=== PATIENT | male | born 2000 | race Caucasian/White ===

== ENCOUNTER 2022-12-26 06:00 | Inpatient (IN) | payer BC, OTHER ==
[2022-12-26] MEDS ORDERED: Fentanyl 100 MCG/2 ML VIAL ONE (06:19)
[2022-12-26] MEDS ORDERED: Midazolam HCl 2 mg/2 ml Vial ONE ×2 (06:19→06:23)
[2022-12-26 06:28] LABS: Hemoglobin 17.1 g/dL (14.0-18.0); Mean Corpuscular HGB CONC 34.5 g/dL (32.0-36.0); Mean Corpuscular Hemoglobin 31.4 pg (27.0-31.0); Mean Platelet Volume 8.1 fL (7.4-10.4); Platelet Count 248 10x3/uL (130-400); RBC Distribution Width 11.8 % (11.5-14.5); Red Blood Cell (RBC) Count 5.44 mill/uL (4.70-6.10); White Blood Cell (WBC) Count 22.2 10x3/uL (4.8-10.8)
[2022-12-26] MEDS ORDERED: Fentanyl CADD 100 ML IV SCH (06:30)
[2022-12-26 06:41] LABS: INR-International Normal Ratio 1.1; Prothrombin Time 14.7 sec (12.0-14.7)
[2022-12-26 06:47] LABS: Acetaminophen Less than 10.0 mcg/mL (10.0-30.0); Albumin 5.3 g/dL (3.5-5.0); Alcohol 191 mg/dL (Less than 10); CK (CPK) 2185 U/L (30-200); Salicylate Less than 8.0 mg/dL (15.0-30.0)
[2022-12-26 06:48] LABS: Chloride 103 mmol/L (98-107); Potassium 3.4 mmol/L (3.5-5.1); Sodium 140 mmol/L (136-145)
[2022-12-26 06:49] LABS: Calcium 9.4 mg/dL (7.8-10.44); Globulin 3.1 g/dL (2.4-3.5); Glucose 134 mg/dL (70-105); Protein, Total 8.4 g/dL (6.0-8.3)
[2022-12-26 06:51] LABS: Anion Gap 19 mmol/L (10-20); Bilirubin, Total 1.3 mg/dL (0.2-1.2); Carbon Dioxide 21 mmol/L (22-29)
[2022-12-26 06:52] LABS: Alkaline Phosphatase 94 U/L (40-110)
[2022-12-26 06:53] LABS: BUN (Urea Nitrogen) 11 mg/dL (8.9-20.6); Calc. Creatinine Clearance 0 mL/min (70-130); Estimated GFR 53
[2022-12-26 06:54] LABS: AST (SGOT) 337 U/L (5-34)
[2022-12-26 06:55] LABS: ALT (SGPT) 268 U/L (8-55); Lipase 378 U/L (8-78)
[2022-12-26] MEDS ORDERED: Dextrose 50% Abboject 50 ML SYRINGE SLOW IVP PRN (07:04)
[2022-12-26] MEDS ORDERED: hydrALAZINE 20 MG/ML VIAL SLOW IVP PRN (07:04)
[2022-12-26] MEDS ORDERED: Dextrose 5% in Water 1,000 ML IV PRN (07:04)
[2022-12-26] MEDS ORDERED: Insulin Regular 300 UNITS/3 ML VIAL SC PRN (07:04)
[2022-12-26] MEDS ORDERED: Ipratropium/Albuterol 3 ML NEB NEB PRN (07:04)
[2022-12-26] MEDS ORDERED: Ondansetron PF 4 MG/2 ML Vial IVP PRN (07:04)
[2022-12-26] MEDS ORDERED: TETANUS, DIPHTHERIA TOX,ADULT (TDVAX) 0.5 ML VIAL IM ONE (07:04)
[2022-12-26] MEDS ORDERED: Sodium Chloride 0.9% 1,000 ML IV SCH (07:15)
[2022-12-26] MEDS ORDERED: Ventilator Sedation Protocol 1 EACH FS SCH (07:15)
[2022-12-26 07:17] LABS: Bilirubin Negative (Negative); Blood, Urine 3+ (Negative); Clarity Clear (Clear); Glucose, Urine (Dipstick) Normal (Negative); Ketone, Urine Negative (Negative); Leukocyte 75 Leu/uL (Negative); Nitrite Negative (Negative); Protein, Urine (Dipstick) 100 mg/dL (Neg-Trace); RBC/HPF Greater than 50 HPF (0-3); Specific Gravity, Urine 1.006 (1.002-1.036); Squamous Epithelial 0-3 HPF (0-3); Urobilinogen Normal mg/dL (Less than 2); pH, Urine 6.5 (5.0-9.0)
[2022-12-26 07:19] LABS: Bacteria/HPF Rare-Few HPF (None Seen)
[2022-12-26 07:26] LABS: Amphetamine Not Detected (NotDetected); Barbiturates Screen Not Detected (NotDetected); Benzodiazepine Screen Not Detected (NotDetected); Cocaine Metabolite Screen Not Detected (NotDetected); Methadone Not Detected (NotDetected); Methamphetamine Not Detected (NotDetected); Opiate Screen Not Detected (NotDetected); Oxycodone Screen Not Detected (NotDetected); Phencyclidine (PCP) Not Detected (NotDetected); THC/Cannabinoid Screen Not Detected (NotDetected); Tricyclic Screen Not Detected (NotDetected)
[2022-12-26 07:27] LABS: Actual Bicarbonate (HCO3a) 17.8 mEq/L (22-28); Analyzer IN Cardio ER; Base Excess (BEa) -6.9 mEq/L (-2.0 to +3.0); CO2 Tension 33.7 mmHg (35.0-45.0); Calcium, Ionized (arterial) 1.08 mmol/L (1.12-1.30); Carboxyhemoglobin (COHb) 0.3 gm% (0.0-3.0); Hemoglobin (Hb) 14.8 g/dL (14.0-18.0); O2 Tension (PaO2), arterial 182.7 mmHg (80.0-100.0); pH, Arterial 7.34 (7.35-7.45)
[2022-12-26] MEDS ORDERED: Fentanyl BOLUS 250 ML IVPB PRN (07:30)
[2022-12-26] MEDS ORDERED: Propofol BOLUS 1,000 MG/100 ML VIAL IV PRN (07:30)
[2022-12-26] MEDS ORDERED: Propofol 1,000 MG/100 ML VIAL IV PRN (07:30)
[2022-12-26] MEDS ORDERED: DISCONTINUE PREVIOUS NARCOTIC PAIN MEDICATIONS AND BENZODIAZEPINES FS SCH (07:30)
[2022-12-26 07:33] LABS: Puncture Site RRA
[2022-12-26 07:34] LABS: ALV-art Gradient 60.375 mmHg (0-20)
[2022-12-26 07:36] LABS: Band 20 % (5-11); Lymphocytes 10 % (21-51); MDiff Complete? YES; Metamyelocyte 1 % (0-0); Monocytes 5 % (0-10); Neutrophil 63 % (42-75); Platelet Morphology Comment Appears Adequate; Polychromasia SLIGHT = 2-3 cells (100X) (0-2/hpf); Reactive Lymphocytes 1 % (0-10)
[2022-12-26 07:38] LABS: Phosphorus 5.7 mg/dL (2.3-4.7)
[2022-12-26 07:40] LABS: Magnesium 2.2 mg/dL (1.6-2.6)
[2022-12-26] MEDS ORDERED: Calcium Chloride 13.6 MEQ in Sodium Chloride 0.9% 100 ML IVPB SCH (08:15)
[2022-12-26 09:07] LABS: Lactic Acid 3.9 mmol/L (0.5-2.2)
[2022-12-26] MEDS: Acetaminophen 500 MG TAB PO SCH ×3 (10:23→20:44)
[2022-12-26] MEDS: Famotidine/PF 20 mg/2ml Vial SLOW IVP SCH ×2 (10:23→21:24)
[2022-12-26] MEDS: Polyethylene Glycol 3350 17 GM Packet PO SCH (10:24)
[2022-12-26] MEDS: Senokot S 8.6-50 MG TAB PO SCH ×2 (10:24→21:24)
[2022-12-26] MEDS: Sodium Chloride 0.9% 1,000 ML IV SCH ×2 (10:24→18:47)
[2022-12-26 11:57] LABS: Hemoglobin 13.9 g/dL (14.0-18.0); Mean Corpuscular HGB CONC 35.8 g/dL (32.0-36.0); Mean Corpuscular Hemoglobin 32.7 pg (27.0-31.0); Mean Corpuscular Volume 91.6 fl (78.0-98.0); Mean Platelet Volume 7.5 fL (7.4-10.4); Platelet Count 195 10x3/uL (130-400); RBC Distribution Width 11.6 % (11.5-14.5); Red Blood Cell (RBC) Count 4.23 mill/uL (4.70-6.10); White Blood Cell (WBC) Count 16.3 10x3/uL (4.8-10.8)
[2022-12-26] MEDS: Ipratropium/Albuterol 3 ML NEB NEB SCH ×2 (12:17→18:18)
[2022-12-26 12:32] LABS: SARS-CoV-2 NAA Rapid Test Not Detected (NotDetected)
[2022-12-26 12:33] LABS: Band 12 % (5-11); Lymphocytes 5 % (21-51); MDiff Complete? YES; Monocytes 4 % (0-10); Neutrophil 79 % (42-75); Platelet Morphology Comment Appears Adequate; RBC Morphology Normal
[2022-12-26] MEDS ORDERED: Iopamidol 370 76% 100 ML VIAL ONE (15:35)
[2022-12-26] MEDS ORDERED: Lidocaine 1% w/Epinephrine 1:100K 20 ML VIAL IJ SCH ×2 (15:45)
[2022-12-26 18:15] LABS: #Monocytes 1.1 thou/uL (0.11-0.59); #Neutrophils 9.3 thou/uL (1.40-6.50); %Basophils 0.1 % (0.0-1.0); %Eosinophils 0.1 % (0.0-10.0); %Lymphocytes 8.9 % (21.0-51.0); %Monocytes 9.8 % (0.0-10.0); %Neutrophils 81.2 % (42.0-75.0); Hemoglobin 13.2 g/dL (14.0-18.0); Mean Corpuscular HGB CONC 33.2 g/dL (32.0-36.0); Mean Corpuscular Hemoglobin 30.1 pg (27.0-31.0); Mean Corpuscular Volume 90.8 fl (78.0-98.0); Platelet Count 173 10x3/uL (130-400); RBC Distribution Width 11.8 % (11.5-14.5); White Blood Cell (WBC) Count 11.5 10x3/uL (4.8-10.8)
[2022-12-26 18:35] LABS: Lactic Acid 2.2 mmol/L (0.5-2.2)
[2022-12-26 18:49] LABS: Anion Gap 13 mmol/L (10-20); BUN (Urea Nitrogen) 14 mg/dL (8.9-20.6); Calc. Creatinine Clearance 112 mL/min (70-130); Calcium 8.5 mg/dL (7.8-10.44); Carbon Dioxide 21 mmol/L (22-29); Chloride 110 mmol/L (98-107); Estimated GFR 88; Glucose 103 mg/dL (70-105); Magnesium 1.5 mg/dL (1.6-2.6); Phosphorus 4.5 mg/dL (2.3-4.7); Potassium 4.3 mmol/L (3.5-5.1); Sodium 140 mmol/L (136-145)
[2022-12-27] MEDS: Fentanyl CADD 100 ML IV SCH ×2 (00:08→20:41)
[2022-12-27 01:12] LABS: #Lymphocytes 1.2 thou/uL (1.20-3.40); #Monocytes 0.9 thou/uL (0.11-0.59); #Neutrophils 7.3 thou/uL (1.40-6.50); %Basophils 0.1 % (0.0-1.0); %Eosinophils 0.3 % (0.0-10.0); %Lymphocytes 12.4 % (21.0-51.0); %Monocytes 9.2 % (0.0-10.0); Hemoglobin 12.7 g/dL (14.0-18.0); Mean Corpuscular Volume 90.9 fl (78.0-98.0); Mean Platelet Volume 7.4 fL (7.4-10.4); Platelet Count 141 10x3/uL (130-400); RBC Distribution Width 11.8 % (11.5-14.5); Red Blood Cell (RBC) Count 4.22 mill/uL (4.70-6.10); White Blood Cell (WBC) Count 9.3 10x3/uL (4.8-10.8)
[2022-12-27] MEDS ORDERED: Magnesium Sulfate In Water 4 GM in Premix Bag 1 BAG IVPB SCH (01:30)
[2022-12-27] MEDS: Sodium Chloride 0.9% 1,000 ML IV SCH ×3 (01:45→17:45)
[2022-12-27] MEDS: Acetaminophen 325 MG TAB PO SCH ×4 (05:19→17:45)
[2022-12-27 05:25] LABS: #Monocytes 0.8 thou/uL (0.11-0.59); #Neutrophils 8.2 thou/uL (1.40-6.50); %Basophils 0.1 % (0.0-1.0); %Eosinophils 0.5 % (0.0-10.0); %Lymphocytes 9.9 % (21.0-51.0); %Neutrophils 81.4 % (42.0-75.0); Hemoglobin 12.6 g/dL (14.0-18.0); Mean Corpuscular HGB CONC 33.5 g/dL (32.0-36.0); Mean Corpuscular Hemoglobin 30.7 pg (27.0-31.0); Mean Corpuscular Volume 91.6 fl (78.0-98.0); Mean Platelet Volume 7.5 fL (7.4-10.4); Platelet Count 133 10x3/uL (130-400); RBC Distribution Width 11.8 % (11.5-14.5)
[2022-12-27 05:59] LABS: ALT (SGPT) 129 U/L (8-55); AST (SGOT) 109 U/L (5-34); Albumin 3.4 g/dL (3.5-5.0); Alkaline Phosphatase 56 U/L (40-110); Anion Gap 11 mmol/L (10-20); BUN (Urea Nitrogen) 13 mg/dL (8.9-20.6); Bilirubin, Total 1.1 mg/dL (0.2-1.2); CK (CPK) 1850 U/L (30-200); Calc. Creatinine Clearance 135 mL/min (70-130); Calcium 8.5 mg/dL (7.8-10.44); Carbon Dioxide 21 mmol/L (22-29); Chloride 110 mmol/L (98-107); Estimated GFR 105; Globulin 2.1 g/dL (2.4-3.5); Glucose 94 mg/dL (70-105); Magnesium 2.7 mg/dL (1.6-2.6); Phosphorus 3.2 mg/dL (2.3-4.7); Potassium 4.1 mmol/L (3.5-5.1); Protein, Total 5.5 g/dL (6.0-8.3); Sodium 138 mmol/L (136-145)
[2022-12-27] MEDS: Ipratropium/Albuterol 3 ML NEB NEB SCH ×3 (07:20→18:11)
[2022-12-27 07:25] LABS: Base Excess (BEa) -0.1 mEq/L (-2.0 to +3.0); CO2 Tension 37.3 mmHg (35.0-45.0); Calcium, Ionized (arterial) 1.18 mmol/L (1.12-1.30); Carboxyhemoglobin (COHb) 0.3 gm% (0.0-3.0); Hemoglobin (Hb) 12.7 g/dL (14.0-18.0); O2 Tension (PaO2), arterial 146.6 mmHg (80.0-100.0); Potassium - ABG Lab 4.04 mmol/L (3.70-5.30); pH, Arterial 7.43 (7.35-7.45)
[2022-12-27 07:26] LABS: ALV-art Gradient 91.975 mmHg (0-20); Puncture Site LRA
[2022-12-27] MEDS: Famotidine/PF 20 mg/2ml Vial SLOW IVP SCH ×2 (08:36→21:11)
[2022-12-27] MEDS: Senokot S 8.6-50 MG TAB PO SCH ×2 (08:36→21:11)
[2022-12-27] MEDS: Polyethylene Glycol 3350 17 GM Packet PO SCH (08:36)
[2022-12-27] MEDS ORDERED: Iopamidol-370 76% 500 ML 1 ML ONE (12:33)
[2022-12-27] MEDS ORDERED: Dexmedetomidine In 0.9 % NaCl 100 ML IVPB SCH (13:15)
[2022-12-27 18:17] LABS: Hemoglobin 11.8 g/dL (14.0-18.0); Mean Corpuscular HGB CONC 33.7 g/dL (32.0-36.0); Mean Corpuscular Hemoglobin 30.9 pg (27.0-31.0); Mean Corpuscular Volume 91.8 fl (78.0-98.0); Mean Platelet Volume 8.1 fL (7.4-10.4); Platelet Count 123 10x3/uL (130-400); RBC Distribution Width 11.7 % (11.5-14.5); Red Blood Cell (RBC) Count 3.81 mill/uL (4.70-6.10); White Blood Cell (WBC) Count 10.4 10x3/uL (4.8-10.8)
[2022-12-27 18:34] LABS: Band 19 % (5-11); Lymphocytes 5 % (21-51); MDiff Complete? YES; Monocytes 6 % (0-10); Neutrophil 69 % (42-75); Platelet Morphology Comment Appears Adequate; RBC Morphology Normal; Reactive Lymphocytes 1 % (0-10)
[2022-12-27 18:39] LABS: Anion Gap 12 mmol/L (10-20); BUN (Urea Nitrogen) 10 mg/dL (8.9-20.6); Calc. Creatinine Clearance 141 mL/min (70-130); Calcium 8.5 mg/dL (7.8-10.44); Carbon Dioxide 21 mmol/L (22-29); Chloride 109 mmol/L (98-107); Estimated GFR 110; Glucose 95 mg/dL (70-105); Magnesium 2.1 mg/dL (1.6-2.6); Phosphorus 2.5 mg/dL (2.3-4.7); Potassium 4.4 mmol/L (3.5-5.1); Sodium 138 mmol/L (136-145)
[2022-12-27] MEDS ORDERED: Sodium Phosphate 30 MMOL in Sodium Chloride 0.9% 250 ML 250 ML IVPB SCH (19:15)
[2022-12-28] MEDS: Acetaminophen 325 MG TAB PO SCH ×4 (00:14→17:48)
[2022-12-28] MEDS: Sodium Chloride 0.9% 1,000 ML IV SCH ×3 (00:46→16:15)
[2022-12-28 04:36] LABS: Anion Gap 12 mmol/L (10-20); BUN (Urea Nitrogen) 8 mg/dL (8.9-20.6); CK (CPK) 1054 U/L (30-200); Calc. Creatinine Clearance 164 mL/min (70-130); Calcium 8.2 mg/dL (7.8-10.44); Carbon Dioxide 20 mmol/L (22-29); Chloride 111 mmol/L (98-107); Estimated GFR 126; Glucose 89 mg/dL (70-105); Lipase 27 U/L (8-78); Magnesium 1.9 mg/dL (1.6-2.6); Potassium 4.2 mmol/L (3.5-5.1); Sodium 139 mmol/L (136-145)
[2022-12-28 04:37] LABS: #Eosinphils 0.1 thou/uL (0.0-0.7); #Lymphocytes 0.6 thou/uL (1.20-3.40); #Monocytes 0.5 thou/uL (0.11-0.59); #Neutrophils 6.5 thou/uL (1.40-6.50); %Basophils 0.1 % (0.0-1.0); %Eosinophils 0.8 % (0.0-10.0); %Lymphocytes 7.5 % (21.0-51.0); %Monocytes 6.6 % (0.0-10.0); %Neutrophils 84.9 % (42.0-75.0); Hemoglobin 10.6 g/dL (14.0-18.0); Mean Corpuscular HGB CONC 32.4 g/dL (32.0-36.0); Mean Corpuscular Volume 92.8 fl (78.0-98.0); Mean Platelet Volume 7.9 fL (7.4-10.4); Platelet Count 109 10x3/uL (130-400); RBC Distribution Width 11.7 % (11.5-14.5); Red Blood Cell (RBC) Count 3.52 mill/uL (4.70-6.10); White Blood Cell (WBC) Count 7.7 10x3/uL (4.8-10.8)
[2022-12-28 04:39] LABS: Phosphorus 3.2 mg/dL (2.3-4.7)
[2022-12-28 06:43] LABS: Actual Bicarbonate (HCO3a) 21.5 mEq/L (22-28); Base Excess (BEa) -2.3 mEq/L (-2.0 to +3.0); CO2 Tension 33.7 mmHg (35.0-45.0); Calcium, Ionized (arterial) 1.17 mmol/L (1.12-1.30); Carboxyhemoglobin (COHb) 0.3 gm% (0.0-3.0); Hemoglobin (Hb) 11.1 g/dL (14.0-18.0); O2 Tension (PaO2), arterial 67.6 mmHg (80.0-100.0); Potassium - ABG Lab 3.98 mmol/L (3.70-5.30); pH, Arterial 7.42 (7.35-7.45)
[2022-12-28 06:44] LABS: ALV-art Gradient 175.475 mmHg (0-20)
[2022-12-28] MEDS: Ipratropium/Albuterol 3 ML NEB NEB SCH ×3 (07:26→18:54)
[2022-12-28] MEDS ORDERED: Sodium Phosphate 15 MMOL in Sodium Chloride 0.9% 250 ML 250 ML IVPB SCH (07:30)
[2022-12-28] MEDS: Famotidine/PF 20 mg/2ml Vial SLOW IVP SCH ×2 (08:44→20:57)
[2022-12-28] MEDS: Polyethylene Glycol 3350 17 GM Packet PO SCH (08:44)
[2022-12-28] MEDS: Senokot S 8.6-50 MG TAB PO SCH ×2 (08:44→21:00)
[2022-12-28] MEDS ORDERED: Piperacillin/Tazobactam 3.375 GM in Sodium Chloride 0.9% 100 ML IVPB SCH (11:00)
[2022-12-28] MEDS ORDERED: Magnesium 2 GM/50 ML(in water) 2 GM in Premix Bag 1 BAG IVPB SCH (11:00)
[2022-12-28] MEDS: Fentanyl 100 MCG/2 ML VIAL SLOW IVP PRN (13:33)
[2022-12-28] MEDS: Piperacillin/Tazobactam 3.375 GM in Sodium Chloride 0.9% 100 ML IVPB SCH ×2 (16:15→23:43)
[2022-12-29] MEDS: Acetaminophen 325 MG TAB PO SCH ×6 (00:26→23:07)
[2022-12-29] MEDS: Sodium Chloride 0.9% 1,000 ML IV SCH ×3 (02:22→17:21)
[2022-12-29 04:37] LABS: #Eosinphils 0.1 thou/uL (0.0-0.7); #Lymphocytes 0.7 thou/uL (1.20-3.40); #Monocytes 0.7 thou/uL (0.11-0.59); #Neutrophils 7.6 thou/uL (1.40-6.50); %Basophils 0.2 % (0.0-1.0); %Eosinophils 1.4 % (0.0-10.0); %Lymphocytes 7.8 % (21.0-51.0); %Monocytes 7.4 % (0.0-10.0); %Neutrophils 83.3 % (42.0-75.0); Hemoglobin 9.9 g/dL (14.0-18.0); Mean Corpuscular HGB CONC 32.2 g/dL (32.0-36.0); Mean Corpuscular Hemoglobin 29.6 pg (27.0-31.0); Platelet Count 117 10x3/uL (130-400); RBC Distribution Width 11.5 % (11.5-14.5); Red Blood Cell (RBC) Count 3.33 mill/uL (4.70-6.10); White Blood Cell (WBC) Count 9.1 10x3/uL (4.8-10.8)
[2022-12-29 04:42] LABS: ALT (SGPT) 63 U/L (8-55); AST (SGOT) 43 U/L (5-34); Alkaline Phosphatase 60 U/L (40-110); Anion Gap 11 mmol/L (10-20); BUN (Urea Nitrogen) 11 mg/dL (8.9-20.6); Bilirubin, Total 1.1 mg/dL (0.2-1.2); Calc. Creatinine Clearance 104 mL/min (70-130); Calcium 8.5 mg/dL (7.8-10.44); Carbon Dioxide 21 mmol/L (22-29); Chloride 111 mmol/L (98-107); Estimated GFR 75; Globulin 2.5 g/dL (2.4-3.5); Glucose 100 mg/dL (70-105); Magnesium 2.1 mg/dL (1.6-2.6); Phosphorus 2.2 mg/dL (2.3-4.7); Potassium 3.8 mmol/L (3.5-5.1); Protein, Total 5.5 g/dL (6.0-8.3); Sodium 139 mmol/L (136-145)
[2022-12-29] MEDS: Ipratropium/Albuterol 3 ML NEB NEB SCH ×3 (07:34→18:35)
[2022-12-29] MEDS: Piperacillin/Tazobactam 3.375 GM in Sodium Chloride 0.9% 100 ML IVPB SCH ×3 (09:19→23:09)
[2022-12-29] MEDS: Famotidine/PF 20 mg/2ml Vial SLOW IVP SCH (09:20)
[2022-12-29] MEDS ORDERED: Potassium Phosphate 30 MMOL in Sodium Chloride 0.9% 250 ML 250 ML IVPB SCH (09:30)
[2022-12-29] MEDS: Polyethylene Glycol 3350 17 GM Packet PO SCH (09:35)
[2022-12-29] MEDS: Senokot S 8.6-50 MG TAB PO SCH ×2 (09:36→20:24)
[2022-12-29] MEDS: carBAMazepine 100 MG/5 ML UDCUP PO SCH ×4 (10:14→20:24)
[2022-12-29] MEDS: Fentanyl 100 MCG/2 ML VIAL SLOW IVP PRN ×3 (12:14→23:45)
[2022-12-29] MEDS: Famotidine 20 MG TAB PO SCH (20:24)
[2022-12-30] MEDS: Sodium Chloride 0.9% 1,000 ML IV SCH ×3 (01:22→16:38)
[2022-12-30 04:18] LABS: #Eosinphils 0.1 thou/uL (0.0-0.7); #Lymphocytes 0.8 thou/uL (1.20-3.40); #Monocytes 0.8 thou/uL (0.11-0.59); #Neutrophils 8.5 thou/uL (1.40-6.50); %Basophils 0.1 % (0.0-1.0); %Eosinophils 1.4 % (0.0-10.0); %Lymphocytes 8.1 % (21.0-51.0); %Monocytes 7.7 % (0.0-10.0); %Neutrophils 82.7 % (42.0-75.0); Hemoglobin 10.2 g/dL (14.0-18.0); Mean Corpuscular HGB CONC 32.4 g/dL (32.0-36.0); Mean Corpuscular Hemoglobin 29.6 pg (27.0-31.0); Mean Corpuscular Volume 91.2 fl (78.0-98.0); Mean Platelet Volume 7.8 fL (7.4-10.4); Platelet Count 164 10x3/uL (130-400); RBC Distribution Width 11.5 % (11.5-14.5); Red Blood Cell (RBC) Count 3.45 mill/uL (4.70-6.10); White Blood Cell (WBC) Count 10.2 10x3/uL (4.8-10.8)
[2022-12-30 04:47] LABS: Anion Gap 15 mmol/L (10-20); BUN (Urea Nitrogen) 9 mg/dL (8.9-20.6); Calc. Creatinine Clearance 164 mL/min (70-130); Calcium 8.6 mg/dL (7.8-10.44); Carbon Dioxide 20 mmol/L (22-29); Chloride 108 mmol/L (98-107); Estimated GFR 127; Glucose 96 mg/dL (70-105); Magnesium 1.8 mg/dL (1.6-2.6); Phosphorus 2.9 mg/dL (2.3-4.7); Potassium 3.8 mmol/L (3.5-5.1); Sodium 139 mmol/L (136-145)
[2022-12-30] MEDS: Acetaminophen 325 MG TAB PO SCH ×4 (05:30→23:32)
[2022-12-30] MEDS: Ipratropium/Albuterol 3 ML NEB NEB SCH ×3 (07:07→18:13)
[2022-12-30] MEDS: Polyethylene Glycol 3350 17 GM Packet PO SCH (07:57)
[2022-12-30] MEDS: Famotidine 20 MG TAB PO SCH ×2 (07:57→19:51)
[2022-12-30] MEDS: carBAMazepine 200 MG TAB PO SCH ×4 (07:57→16:41)
[2022-12-30] MEDS: Senokot S 8.6-50 MG TAB PO SCH ×2 (07:57→19:51)
[2022-12-30] MEDS: Piperacillin/Tazobactam 3.375 GM in Sodium Chloride 0.9% 100 ML IVPB SCH ×3 (07:58→23:33)
[2022-12-30] MEDS: cloNIDine 0.1 MG TAB PO SCH ×4 (08:01→23:32)
[2022-12-30] MEDS ORDERED: Potassium Phosphate 30 MMOL, Magnesium Sulfate 2 GM in Sodium Chloride 0.9% 250 ML 250 ML IVPB SCH (08:45)
[2022-12-30] MEDS: Fentanyl 100 MCG/2 ML VIAL SLOW IVP PRN ×2 (15:10→20:43)
[2022-12-31] MEDS: Fentanyl 100 MCG/2 ML VIAL SLOW IVP PRN (01:35)
[2022-12-31] MEDS: cloNIDine 0.1 MG TAB PO SCH ×3 (05:58→17:51)
[2022-12-31] MEDS: Acetaminophen 325 MG TAB PO SCH ×4 (05:58→23:09)
[2022-12-31] MEDS: Ipratropium/Albuterol 3 ML NEB NEB SCH ×3 (07:20→18:07)
[2022-12-31] MEDS: Polyethylene Glycol 3350 17 GM Packet PO SCH (07:55)
[2022-12-31] MEDS: Piperacillin/Tazobactam 3.375 GM in Sodium Chloride 0.9% 100 ML IVPB SCH ×2 (07:55→16:01)
[2022-12-31] MEDS: Senokot S 8.6-50 MG TAB PO SCH ×2 (07:55→21:17)
[2022-12-31] MEDS: Famotidine 20 MG TAB PO SCH ×2 (07:56→21:17)
[2022-12-31] MEDS: carBAMazepine 200 MG TAB PO SCH ×3 (07:56→16:20)
[2022-12-31] MEDS ORDERED: Iopamidol 370 76% 100 ML VIAL ONE (15:39)
[2022-12-31] MEDS ORDERED: Lorazepam 2 MG/ML VIAL SLOW IVP SCH (22:15)
[2022-12-31] MEDS: Acetaminophen/Codeine 30-300mg Tablet PO PRN (22:17)
[2022-12-31] MEDS: Melatonin 3 MG TAB PO PRN (22:18)
[2023-01-01] MEDS: Piperacillin/Tazobactam 3.375 GM in Sodium Chloride 0.9% 100 ML IVPB SCH ×4 (00:27→23:37)
[2023-01-01] MEDS: cloNIDine 0.1 MG TAB PO SCH ×5 (00:36→23:38)
[2023-01-01] MEDS: Acetaminophen/Codeine 30-300mg Tablet PO PRN ×3 (03:40→22:36)
[2023-01-01] MEDS: Acetaminophen 325 MG TAB PO SCH ×4 (05:34→23:37)
[2023-01-01] MEDS: Ipratropium/Albuterol 3 ML NEB NEB SCH ×3 (06:51→18:58)
[2023-01-01] MEDS: carBAMazepine 200 MG TAB PO SCH (09:34)
[2023-01-01] MEDS: Senokot S 8.6-50 MG TAB PO SCH ×3 (09:34→20:43)
[2023-01-01] MEDS: Famotidine 20 MG TAB PO SCH ×2 (09:34→20:43)
[2023-01-01] MEDS: Polyethylene Glycol 3350 17 GM Packet PO SCH (09:42)
[2023-01-01 17:21] VITALS: BMI 22.1
[2023-01-01] MEDS: Melatonin 3 MG TAB PO PRN (21:42)
[2023-01-02] MEDS: cloNIDine 0.1 MG TAB PO SCH (04:29)
[2023-01-02] MEDS: Acetaminophen/Codeine 30-300mg Tablet PO PRN ×3 (04:29→20:09)
[2023-01-02] MEDS: Acetaminophen 325 MG TAB PO SCH ×3 (06:37→18:15)
[2023-01-02] MEDS: Ipratropium/Albuterol 3 ML NEB NEB SCH ×2 (06:56→12:14)
[2023-01-02] MEDS: Polyethylene Glycol 3350 17 GM Packet PO SCH ×2 (09:39→09:51)
[2023-01-02] MEDS: Senokot S 8.6-50 MG TAB PO SCH ×4 (09:41→20:08)
[2023-01-02] MEDS: Piperacillin/Tazobactam 3.375 GM in Sodium Chloride 0.9% 100 ML IVPB SCH (09:42)
[2023-01-02] MEDS: Famotidine 20 MG TAB PO SCH ×2 (09:43→20:08)
[2023-01-03] MEDS: Acetaminophen 325 MG TAB PO SCH ×4 (01:10→18:15)
[2023-01-03] MEDS: Melatonin 3 MG TAB PO PRN (01:11)
[2023-01-03] MEDS ORDERED: Lorazepam 2 MG/ML VIAL SLOW IVP SCH ×2 (06:45→22:45)
[2023-01-03] MEDS: Polyethylene Glycol 3350 17 GM Packet PO SCH ×2 (09:50→09:52)
[2023-01-03] MEDS: Famotidine 20 MG TAB PO SCH ×2 (09:51→20:34)
[2023-01-03] MEDS: Senokot S 8.6-50 MG TAB PO SCH ×4 (09:51→20:37)
[2023-01-03] MEDS: carBAMazepine 100 mg Chewable Tablet PO SCH ×2 (10:47→17:43)
[2023-01-03] MEDS: Acetaminophen/Codeine 30-300mg Tablet PO PRN ×2 (15:51→21:37)
[2023-01-03] MEDS ORDERED: carBAMazepine 100 mg Chewable Tablet PO SCH (21:00)
[2023-01-03] MEDS ORDERED: Nicotine 7 MG PATCH TD SCH (22:45)
[2023-01-03] MEDS ORDERED: QUEtiapine 25 MG TAB PO SCH (22:45)
[2023-01-04] MEDS: Acetaminophen 325 MG TAB PO SCH ×3 (00:32→06:15)
[2023-01-04] MEDS: Senokot S 8.6-50 MG TAB PO SCH (09:30)
[2023-01-04] MEDS: Famotidine 20 MG TAB PO SCH (09:30)
[2023-01-04] MEDS: Polyethylene Glycol 3350 17 GM Packet PO SCH ×2 (09:31)
[2023-01-04 12:10] VITALS: BP 131/86; TEMP 98.2
[2023-01-04] MEDS ORDERED: QUEtiapine 25 MG TAB PO SCH (21:00)
[2023-01-05] MEDS ORDERED: Aspirin 325 mg Enteric Coated Tablet PO SCH (09:00)
== END 2023-01-04 15:45 | DRG 963 ==
LOC: ERS 06:00 → CCU 07:07 → SURG A 12-31 20:23
PROVIDERS: ADMIT Specialist; ATTEND Specialist
PROC: 5A1945Z Respiratory Ventilation, 24-96 Consecutive Hours (ICD-10-PCS; principal; 2022-12-26)
PROC: 0W9930Z Drainage of Right Pleural Cavity with Drainage Device, Percutaneous Approach (ICD-10-PCS; 2022-12-26)
PROC: 0D9670Z Drainage of Stomach with Drainage Device, Via Natural or Artificial Opening (ICD-10-PCS; 2022-12-26)
PROC: 3E0G76Z Introduction of Nutritional Substance into Upper GI, Via Natural or Artificial Opening (ICD-10-PCS; 2022-12-29)
DX: S06.5XAA Traumatic subdural hemorrhage with loss of consciousness status unknown, initial encounter (principal); S37.061A Major laceration of right kidney, initial encounter; J69.0 Pneumonitis due to inhalation of food and vomit; J96.00 Acute respiratory failure, unspecified whether with hypoxia or hypercapnia; S27.0XXA Traumatic pneumothorax, initial encounter; S22.030A Wedge compression fracture of third thoracic vertebra, initial encounter for closed fracture; S22.050A Wedge compression fracture of T5-T6 vertebra, initial encounter for closed fracture; S12.000A Unspecified displaced fracture of first cervical vertebra, initial encounter for closed fracture; S22.31XA Fracture of one rib, right side, initial encounter for closed fracture; S36.114A Minor laceration of liver, initial encounter; N17.9 Acute kidney failure, unspecified; S37.81 Injury of adrenal gland; Z20.822 Contact with and (suspected) exposure to COVID-19; Z23 Encounter for immunization; R40.2312 Coma scale, best motor response, none, at arrival to emergency department; R40.2112 Coma scale, eyes open, never, at arrival to emergency department; R40.2212 Coma scale, best verbal response, none, at arrival to emergency department; S06.6XAA Traumatic subarachnoid hemorrhage with loss of consciousness status unknown, initial encounter; T79.6XXA Traumatic ischemia of muscle, initial encounter; E83.52 Hypercalcemia; F10.129 Alcohol abuse with intoxication, unspecified; R31.0 Gross hematuria; S40.012A Contusion of left shoulder, initial encounter; S20.212A Contusion of left front wall of thorax, initial encounter; S80.12XA Contusion of left lower leg, initial encounter; S80.11XA Contusion of right lower leg, initial encounter; Y90.6 Blood alcohol level of 120-199 mg/100 ml; E83.51 Hypocalcemia; R74.01 Elevation of levels of liver transaminase levels; S42.114A Nondisplaced fracture of body of scapula, right shoulder, initial encounter for closed fracture; R33.9 Retention of urine, unspecified; V49.88XA Car occupant (driver) (passenger) injured in other specified transport accidents, initial encounter; Y92.410 Unspecified street and highway as the place of occurrence of the external cause
CPT/HCPCS: 36415; 36416; 36600; 70450; 70486; 70498; 71045; 71260; 72125; 72170; 72194; 74018; 74174; 74177; 80048; 80053; 80306; 80307; 81003; 81015; 82533; 82550; 82805; 83605; 83690; 83735; 84100; 85025; 85610; 85730; 86850; 86900; 86901; 87040; 87086; 87811; 90714; 94002; 94003; 94640; 96374; 96375; 99292; G0390; J1650; J2060; J2250; J2543; J2704; J3010; J3475; J3490; J7050; J7620; Q9967; S0028; U0002